=== PATIENT | male | born 1945 | race Caucasian/White ===

== ENCOUNTER → 2020-01-14 | Outpatient (CLI) | payer MEDICARE ==
[~2020-01-14] MED LIST: AC500T PO; ASP81TEC PO; CYCL10TA9 PO; FERR1TAB20 PO; GABA-486 PO; HYDR25TA4 PO; MELO7.5T46 PO; METO25TA PO; MULT-1029 PO; NF-LOVAZAC PO; PANT40TA2 PO; SPIR1TAB3 PO; multi-vitamines PO
--- NOTE | 2020-01-14 09:02 | Diagnostic Imaging Report ---
PROCEDURE: US Thyroid. TECHNIQUE: Multiple Real-time grayscale images were obtained of the thyroid in various projections. INDICATION: Thyroid nodule. COMPARISON: No prior studies are available for comparison. FINDINGS: The right lobe of the thyroid measures 5.5 x 3.3 x 3.0 cm and the left lobe measures 4.7 x 2.1 x 1.5 cm. The isthmus is 3 mm in thickness. There is a dominant solid mass involving the right lobe of the thyroid measuring 4.3 x 2.6 x 3.4 cm. No microcalcifications are seen. Two nodules in the left lobe are identified with the largest measuring approximately 8 mm x 5 mm. A nodule in the right aspect of the isthmus measures 1.8 x 1.2 x 1.6 cm. No microcalcifications are seen. IMPRESSION: Multiple bilateral thyroid nodules with the largest in the right lobe, as described. Fine-needle aspiration could be performed if not already performed. Dictated by: Dictated on workstation # [id number]
== END ==
LOC: RAD 07:42
PROVIDERS: ATTEND Family Medicine
DX: E04.2 Nontoxic multinodular goiter (principal)
CPT/HCPCS: 76536

== ENCOUNTER → 2020-01-24 | Outpatient (CLI) | payer MEDICARE ==
[~2020-01-24] MED LIST changes: +LIDOCAINE 1% INJ 20 ML 20 ML VIAL INJ ONE
--- NOTE | 2020-01-24 10:27 | Diagnostic Imaging Report ---
INDICATION: Thyroid nodule. Patient presents for ultrasound-guided thyroid biopsy. Patient brought to the procedure room, placed on the bed in the supine position. Ultrasound imaging of the right neck was performed to evaluate appropriate entry site. Skin of the right neck and midline neck was prepped and draped in the usual sterile fashion. Small amount of 1% lidocaine was utilized for local anesthesia. A total of 4 passes were made into the dominant solid mass right lobe of thyroid utilizing 25-gauge needles and fine-needle aspiration technique. A single pass was made into the mass with the Rotex needle and a rotated biopsy was performed. Next, 4 passes were made into the dominant nodule in the right aspect of the isthmus utilizing 25-gauge needles and fine-needle aspiration technique. A solitary pass with the Rotex needle with Rotex biopsy was performed as well. The patient tolerated the procedure well and left department in stable condition. IMPRESSION: Successful ultrasound guided fine needle aspiration and Rotex biopsy of the dominant solid mass right lobe of the thyroid as well as the solid nodule in the right aspect of the isthmus. Pathology results are currently pending. Dictated by: Dictated on workstation # [id number]
== END ==
LOC: RAD 08:19
PROVIDERS: ATTEND Family Medicine
DX: E04.1 Nontoxic single thyroid nodule (principal)
CPT/HCPCS: 88173; 88305

== ENCOUNTER 2020-04-01 13:38 | Outpatient (RCR) | payer MEDICARE ==
[~2020-04-01 13:38] MED LIST changes: -LIDOCAINE 1% INJ 20 ML 20 ML VIAL INJ ONE
== END 2020-04-28 09:00 | disposition home or self-care (01) ==
LOC: ONC 13:38
PROVIDERS: ATTEND Radiology Radiation Oncology
DX: C73 Malignant neoplasm of thyroid gland (principal); I10 Essential (primary) hypertension; M19.91 Primary osteoarthritis, unspecified site; Z98.890 Other specified postprocedural states; Z90.89 Acquired absence of other organs; Z79.899 Other long term (current) drug therapy; Z80.0 Family history of malignant neoplasm of digestive organs; Z87.891 Personal history of nicotine dependence; Z86.2 Personal history of diseases of the blood and blood-forming organs and certain disorders involving the immune mechanism
CPT/HCPCS: 84443 ×2; G0463; 99204

== ENCOUNTER 2020-05-01 13:29 | Outpatient (RCR) | payer MEDICARE | END 2020-07-27 | disposition home or self-care (01) | LOC: ONC 13:29 | PROVIDERS: ATTEND Radiology Radiation Oncology | DX: C73 Malignant neoplasm of thyroid gland (principal); I10 Essential (primary) hypertension; M19.91 Primary osteoarthritis, unspecified site; Z98.890 Other specified postprocedural states; Z90.89 Acquired absence of other organs; Z79.899 Other long term (current) drug therapy; Z80.0 Family history of malignant neoplasm of digestive organs; Z87.891 Personal history of nicotine dependence; Z86.2 Personal history of diseases of the blood and blood-forming organs and certain disorders involving the immune mechanism | CPT/HCPCS: 84432; 86800 ==

== ENCOUNTER → 2020-05-01 | Outpatient (CLI) | payer MEDICARE | LOC: CARD 13:42 | PROVIDERS: ATTEND Radiology Radiation Oncology | DX: C73 Malignant neoplasm of thyroid gland (principal) | CPT/HCPCS: 79005; A9517 ×2 ==

== ENCOUNTER → 2020-05-06 | Outpatient (CLI) | payer MEDICARE ==
--- NOTE | 2020-05-06 13:03 | Diagnostic Imaging Report ---
EXAMINATION: I-131 whole body bone scan. INDICATION: Thyroid cancer. TECHNIQUE: This exam was performed following the administration of 30.3 mCi of I-131. Anterior and posterior whole body images were obtained. COMPARISON: There are no prior Nuclear Medicine studies available for comparison. FINDINGS: There is intense uptake in the thyroid bed. There is no other abnormal uptake to suggest metastatic disease, however. There is evidence of dilute radiotracer in the stomach and left colon. IMPRESSION: There is no evidence for metastatic disease. Dictated by: Dictated on workstation # [id number]
== END ==
LOC: CARD 08:50
PROVIDERS: ATTEND Radiology Radiation Oncology
DX: C73 Malignant neoplasm of thyroid gland (principal)
CPT/HCPCS: 78018

== ENCOUNTER → 2021-01-27 | Outpatient (CLI) | payer MEDICARE | LOC: CARD 14:30 | PROVIDERS: ATTEND Internal Medicine Cardiovascular Disease | DX: I35.8 Other nonrheumatic aortic valve disorders (principal); I10 Essential (primary) hypertension; I25.10 Atherosclerotic heart disease of native coronary artery without angina pectoris | CPT/HCPCS: 93306 ==

== ENCOUNTER 2021-04-08 14:47 | Outpatient (RCR) | payer MEDICARE ==
[~2021-04-08 14:47] MED LIST changes: +CYCL10TA25 PO; -CYCL10TA9 PO
== END 2021-04-24 | disposition still patient (30) ==
PROVIDERS: ATTEND Family Medicine
DX: M54.16 Radiculopathy, lumbar region (principal)

== ENCOUNTER → 2022-02-04 | Outpatient (CLI) | payer MEDICARE | LOC: CARD 11:46 | PROVIDERS: ATTEND Internal Medicine Cardiovascular Disease | DX: I10 Essential (primary) hypertension (principal); I25.10 Atherosclerotic heart disease of native coronary artery without angina pectoris | CPT/HCPCS: 93306 ==

== ENCOUNTER → 2022-02-24 | Outpatient (CLI) | payer MEDICARE ==
[~2022-02-24] MED LIST changes: +CATHETER FLUSH 10 ML SYR IVP PRN
[2022-02-24 13:09] VITALS: BP 158/71
--- NOTE | 2022-02-24 14:55 | Cardiology Stress Test Report ---
Stress Test Report Date of Procedure/Referring: Date of Procedure: Feb 24, 2022 PCP Shara Frazier DO Admitting Physician Admitting Physician: Attending Physician: Mercedes Braxton MD Baseline Heart Rate: 77 Baseline Blood Pressure: Blood Pressure Systolic: 158 Blood Pressure Diastolic: 71 Vital Signs Date Time Temp Pulse Resp B/P (MAP) Pulse Ox O2 Delivery O2 Flow Rate FiO2 02/24/22 13:09 73 16 158/71 (100) 98 Room Air Baseline Vital Signs Vital Signs Date Time Temp Pulse Resp B/P (MAP) Pulse Ox O2 Delivery O2 Flow Rate FiO2 02/24/22 13:09 73 16 158/71 (100) 98 Room Air Baseline EKG: Baseline EKG: RBBB Summary: After explaining the procedure and details to the patient, he signed the consent and was brought to the stress nuclear laboratory. Patient exercised on standard Jona protocol, EKG, heart rate and blood pressure were monitored continuously, resting and stress doses of radio tracer were injected, imaging was acquired and reviewed in the short axis, horizontal long axis and vertical long axis views Patient was able to exercise for a total of 3 minutes on Jona protocol, METs 4.6 Maximum heart rate 150 Maximum blood pressure 211/95 Stress EKG, Minimal nondiagnostic changes Recovery EKG, Return to baseline TID: 1.14 SSS: 4 SDS: 2 EF: 74 Conclusion: 1. Poor exercise tolerance for 3 minutes on standard Jona protocol, 4.6 METS achieving over 100% of maximum expected heart rate 2. Appropriate heart rate response to exercise with severe hypertensive respon se to exercise with peak blood pressure 211/95 return to baseline during recovery 3. Baseline right bundle branch block with nonspecific EKG changes persisted during test 4. Diaphragmatic attenuation with typical male pattern, no significant ischemia or infarction noted on SPECT images 5. Normal left ventricular size, ejection fraction 74% Copy Copies To 1: SHARA FRAZIER BASHAR J MD Feb 24, 2022 14:55
== END ==
LOC: CARD 11:24
PROVIDERS: ATTEND Internal Medicine Cardiovascular Disease
DX: I25.10 Atherosclerotic heart disease of native coronary artery without angina pectoris (principal); I10 Essential (primary) hypertension
CPT/HCPCS: 78452; 93017; A9502